=== PATIENT | male | born 1980 | race Caucasian/White ===

== ENCOUNTER 2024-06-15 08:29 | Emergency (ER) | payer OTHER ==
[~2024-06-15] VITALS: Ht 188 cm; Wt 100.0 kg
[2024-06-15 08:34] VITALS: BP 131/90; PULSE 91; RESP 18; TEMP 98.6; O2SAT 97
[2024-06-15] MEDS: BACITRACIN ZINC OINT UDPKT TOP ONE (09:00)
[2024-06-15] MEDS: TETANUS, DIPHTHERIA, PERTUSSIS VAC/PF 0.5ML (>10YR OLD) IM ONE (09:00)
[2024-06-15] MEDS: LIDOCAINE HCL/PF 1% 10 MG/ML 5ML VIAL INFIL ONE (09:00)
[2024-06-15] MEDS ORDERED: BO1 TP (09:45)
== END 2024-06-15 10:15 | disposition home or self-care (01) ==
LOC: ER 08:40
DX: S61.511A Laceration without foreign body of right wrist, initial encounter (principal); I48.91 Unspecified atrial fibrillation; Z88.0 Allergy status to penicillin; X58.XXXA Exposure to other specified factors, initial encounter; Y93.89 Activity, other specified; Y92.89 Other specified places as the place of occurrence of the external cause; Y99.8 Other external cause status
CPT/HCPCS: 90715; 12002; 90471; 99283; J3490; Z7610